=== PATIENT | male | born 1960 | race Two or more races ===

== ENCOUNTER 2018-02-12 12:15 | Inpatient (IN) | payer OTHER ==
--- NOTE | 2018-02-12 12:25 | PDOC ---
History of Present Illness - General Stated Complaint: Syncope/Near Syncope Time Seen by Provider: 02/12/18 12:25 History Source: Patient, Family Exam Limitations: Other - History of Present Illness Initial Comments: 02/12/18 12:46 57 year old male with PMH cerebral palsy, PUD, GIB, multiple blood transfusions , srinivasan ataxia, pneumonia complicated by sepsis/empyema, HTN presented to ED for low hemoglobin and near syncopal episode. Per pt's nephew, pt was sitting in his wheelchair and had a near syncopal episode for a few minutes, was arousable to voice, then returned to baseline. Pt's baseline per nephew is alert and oriented to person and place. Pt's baseline ambulation is via wheelchair. EMS was called after syncopal episode, and Dr. Oliverio Heredia (PCP) was called, ultimately pt returned to baseline and it was decided to not bring him to the hospital. Pt had recent blood work, which showed a hemoglobin of 8, and pt was sent to ED for transfusion. Pt admitted to generalized weakness, shortness of breath and lightheadedness today. Family member admitted to dark tarry stools x3 days. Pt denied chest pain, palpitations, abdominal pain, nausea , vomiting, diarrhea. Allergies: ASA PCP: Oliverio Heredia GI: Lizbeth Pulmonology: Carolyn Past History - Past Medical History Allergies/Adverse Reactions: Allergies Allergy/AdvReac Type Severity Reaction Status Date / Time aspirin Allergy Verified 02/12/18 12:32 Home Medications: Ambulatory Orders Krill/Om-3/Dha/Epa/Phospho/Ast [Krill Oil 1,000 mg Softgel] 1 each PO DAILY 03/02 Mv-Min/Vit C/Glut/Lysine/Hb124 [Immune Support Chewable Tablet] 1 each PO ASDIR 02/12/18 Omeprazole Magnesium [Acid Wearing Apparel Assembler] 40 mg PO ASDIR 02/12/18 Ubidecarenone [Co Q-10] 100 mg PO DAILY 02/12/18 COPD: No GI Disorders: Yes (bleeding, gastric ulcers) - Suicide/Smoking/Psychosocial Hx Smoking History: Never smoked Hx Alcohol Use: No Drug/Substance Use Hx: No Review of Systems - Review of Systems Able to Perform ROS?: Yes Comments:: 02/12/18 12:54 General: admitted to generalized weakness. denied fever, chills, night sweats. HEENT: denied sore throat, rhinorrhea, ear pain. Heart: admitted to near-syncope. denied chest pain, palpitations, syncope, lower extremity swelling, diaphoresis. Respiratory: admitted to shortness of breath. denied cough, sputum production, hemoptysis. Abdomen: admitted to dark/tarry stool. denied abdominal pain, nausea, vomiting, diarrhea, constipation. : denied dysuria, increased urinary frequency, hematuria, urinary incontinence , flank pain. Back: denied back pain. Musculoskeletal: denied joint pain, muscle pain, joint swelling. Neurological: denied headache, dizziness, numbness, tingling, weakness. Skin: denied rash, laceration, abrasion. *Physical Exam - Physical Exam Comments: 02/12/18 12:56 Constitutional: Well-nourished, Well-developed, appearing stated age. HEENT: head is normocephalic, atraumatic. EOMI. PERRLA. Eyes: pale conjuctiva Neck: supple. Full ROM. Heart: regular rhythm. no murmurs, rubs or gallops. Lungs: clear to auscultation bilaterally. no crackles, rhonchi or wheezing. no stridor. Abdomen: soft, nontender. normal bowel sounds. no rebound, guarding, masses. Sacral: erythema to sacral area, no ulcer. Rectal: hard stool in rectal vault. Extremities: Peripheral pulses intact. No lower extremity edema. Neurological: CN 2-12 grossly intact. Moves all four extremities. Psych: awake, alert, oriented x3. Follows commands. Answers questions appropriately. ED Treatment Course - LABORATORY CBC & Chemistry Diagram: 02/13/18 05:30 02/13/18 05:30 Medical Decision Making - Medical Decision Making 02/12/18 12:57 57 year old male with above PMH presented to ED fro near syncopal episode associated with dark tarry stools and hemoglobin of 8. Initial Vital Signs Temp Pulse Resp BP Pulse Ox 99.1 F 105 H 20 110/53 L 99 02/12/18 12:33 02/12/18 12:33 02/12/18 12:33 02/12/18 12:33 02/12/18 12:33 Afebrile, but borderline. Rectal temp = 99.9F. Mild tachycardia. Borderline tachypnea. Mild hypotension. No hypoxia on room air. Labs ordered: CBC, CMP, stool for occult blood, cardiac enzymes, magnesium Imaging ordered: CXR Medications ordered: none EKG performed at 1257: rate 99, regular rhythm, normal acxis, QTc 449, normal intervals, no acute ST changes. 02/12/18 13:24 CBC WBC 18.4 K/mm3 (4.0-10.0) H 02/12/18 12:40 RBC 4.14 M/mm3 (4.00-5.60) 02/12/18 12:40 Hgb 7.6 GM/dL (11.7-16.9) L 02/12/18 12:40 Hct 25.3 % (35.4-49) L D 02/12/18 12:40 MCV 61.0 fl (80-96) L 02/12/18 12:40 MCH 18.4 pg (25.7-33.7) L D 02/12/18 12:40 MCHC 30.1 g/dl (32.0-35.9) L 02/12/18 12:40 RDW 18.6 % (11.9-15.9) H 02/12/18 12:40 Plt Count 455 K/MM3 (134-434) H D 02/12/18 12:40 MPV 7.5 fl (7.5-11.1) 02/12/18 12:40 Absolute Neuts (auto) 13.6 K/mm3 (1.5-8.0) H 02/12/18 12:40 Neutrophils % 73.9 % (42.8-82.8) D 02/12/18 12:40 Lymphocytes % 14.4 % (8-40) D 02/12/18 12:40 Monocytes % 10.0 % (3.8-10.2) 02/12/18 12:40 Eosinophils % 1.0 % (0-4.5) 02/12/18 12:40 Basophils % 0.7 % (0-2.0) 02/12/18 12:40 Nucleated RBC % 0 % (0-0) 02/12/18 12:40 Leukocytosis with left shift. Thrombocytosis. Microcytic anemia. - Baseline hgb 9.5 Stool for occult blood positive. Additional labs ordered: lactate, VBG, blood cultures, UA/UC Additional medications ordered: packed RBC 02/12/18 13:31 CMP Sodium 139 mmol/L (136-145) 02/12/18 12:40 Potassium 3.6 mmol/L (3.5-5.1) 02/12/18 12:40 Chloride 106 mmol/L (98-107) 02/12/18 12:40 Carbon Dioxide 24 mmol/L (21-32) 02/12/18 12:40 Anion Gap 9 MMOL/L (8-16) 02/12/18 12:40 BUN 24 mg/dL (7-18) H 02/12/18 12:40 Creatinine 1.0 mg/dL (0.55-1.3) 02/12/18 12:40 Creat Clearance w eGFR > 60 (>60) 02/12/18 12:40 Random Glucose 114 mg/dL (74-106) H 02/12/18 12:40 Calcium 8.3 mg/dL (8.5-10.1) L 02/12/18 12:40 Magnesium 1.7 mg/dL (1.8-2.4) L 02/12/18 12:40 Total Bilirubin 0.3 mg/dL (0.2-1) 02/12/18 12:40 AST 9 U/L (15-37) L 02/12/18 12:40 ALT 16 U/L (13-61) 02/12/18 12:40 Alkaline Phosphatase 72 U/L (45-117) 02/12/18 12:40 Creatine Kinase 43 IU/L (26-308) 02/12/18 12:40 Troponin I < 0.02 ng/ml (0.00-0.05) 02/12/18 12:40 Total Protein 6.7 g/dl (6.4-8.2) 02/12/18 12:40 Albumin 3.5 g/dl (3.4-5.0) 02/12/18 12:40 Mildly elevated BUN. - Dehydration vs upper GIB No clinically significant electrolyte abnormalities. Normal cardiac enzymes. 02/12/18 14:30 Lactic = 1.5 VBG - mild respiratory alkalosis Blood cultures pending. Urine Test Results Urine Color Ltyellow 02/12/18 13:30 Urine Appearance Clear 02/12/18 13:30 Urine pH 5.0 (5.0-8.0) 02/12/18 13:30 Ur Specific [place] 1.024 (1.010-1.035) 02/12/18 13:30 Urine Protein Negative (NEGATIVE) 02/12/18 13:30 Urine Glucose (UA) Negative (NEGATIVE) 02/12/18 13:30 Urine Ketones Negative (NEGATIVE) 02/12/18 13:30 Urine Blood Negative (NEGATIVE) 02/12/18 13:30 Urine Nitrite Negative (NEGATIVE) 02/12/18 13:30 Urine Bilirubin Negative (<2.0 mg/dL) 02/12/18 13:30 Ur Leukocyte Esterase Negative (NEGATIVE) 02/12/18 13:30 No evidence of UTI. CXR report: prominent mediastinum, hiatal hernia, weak inspiration, no acute pathology. - My view: cardiomegaly. sharp costophrenic angles. no pneumothorax. prominent mediastinum noted on prior CXR 01/06/2016. Pt to be admitted for symptomatic anemia requiring blood transfusion, possibly secondary to acute GIB. Pt meets criteria for SIRS based on leukocytosis and HR>90. Low grade fever with no source of infection. - UA negative - CXR no infiltrate - Blood cultures pending 02/12/18 16:[address] Logan about the case, who will assume care for the patient when he is admitted. Dr. Logan requested CT head. Pending CT head. 02/14/18 05:38 CT head report: no acute intracranial pathology. *DC/Admit/Observation/Transfer Diagnosis at time of Disposition: Microcytic anemia, Syncope, Leukocytosis, GIB (gastrointestinal bleeding), SIRS (systemic inflammatory response syndrome), Thrombocytosis, Cerebral palsy - Discharge Dispostion Condition at time of disposition: Stable Decision to Admit order: Yes - Referrals - Patient Instructions - Post Discharge Activity
--- NOTE | 2018-02-12 12:29 | PDOC ---
Attending Attestation - Resident Resident Name: Natasha Thakur - HPI HPI: 02/12/18 15:30 Pt presents to the ED complaining of syncope, light headness and shortness of breath. Family is reporting that he has had multiple black stools. Had syncope on Sunday, but improved on the arrival of EMS and was not taken to the hospital. Presents today because he continues to feel lightheaded and short of breath and because Hgb drawn on Sunday was 8. Sent in by PMD Oliverio Garcia for transfusion. 02/12/18 15:42 02/12/18 15:43 - Physicial Exam PE: 02/12/18 15:47 Agree with resident exam. Patient has cerebral palsy but is alert and oriented. Lungs are clear. Heart has regular rate and rhythm. Abdomen soft, non tender and non distended. Skin is pale but without rashes. - Medical Decision Making 02/12/18 15:50 Pt presents to the ED complaining of presyncope and shortness of breath. Sent in for transfusion by PMD secondary to Hbg of 8. Labs show a WBC count of 18, but patient is afebrile. Lactate and UA show no evidence of infection. Will hold on antibiotics for now. Will admit to medicine for syncopal work up. Will transfuse one unit of PRBC.
[2018-02-12 12:35] VITALS: BMI 25.7
[2018-02-12 13:03] LABS: BASO % 0.7 % (0-2.0); HEMATOCRIT 25.3 % (35.4-49); HEMOGLOBIN 7.6 GM/dL (11.7-16.9); LYMPH % 14.4 % (8-40); MCHC 30.1 g/dl (32.0-35.9); MEAN PLT VOLUME 7.5 fl (7.5-11.1); NEUT % 73.9 % (42.8-82.8); PLATELET COUNT 455 K/MM3 (134-434); RBC 4.14 M/mm3 (4.00-5.60); RDW 18.6 % (11.9-15.9); WHITE BLOOD COUNT 18.4 K/mm3 (4.0-10.0)
[2018-02-12 13:05] LABS: MCH 18.4 pg (25.7-33.7)
[2018-02-12 13:21] LABS: ALBUMIN 3.5 g/dl (3.4-5.0); ALK PHOS 72 U/L (45-117); ANION GAP 9 MMOL/L (8-16); BILIRUBIN,TOTAL 0.3 mg/dL (0.2-1); BLOOD UREA NITROGEN 24 mg/dL (7-18); CALCIUM 8.3 mg/dL (8.5-10.1); CHLORIDE 106 mmol/L (98-107); CO2 24 mmol/L (21-32); GLUCOSE,RANDOM 114 mg/dL (74-106); MAGNESIUM 1.7 mg/dL (1.8-2.4); POTASSIUM 3.6 mmol/L (3.5-5.1); SGOT/AST 9 U/L (15-37); SGPT/ALT 16 U/L (13-61); SODIUM 139 mmol/L (136-145); TOT PROT 6.7 g/dl (6.4-8.2)
[2018-02-12 13:26] LABS: INR 1.11 (0.83-1.09); PROTHROMBIN TIME (PATIENT) 13.1 SEC (9.7-13.0)
[2018-02-12 13:29] LABS: ACTIVATED PTT 29.7 SECONDS (25.2-36.5)
[2018-02-12 13:42] LABS: URINE APPEARANCE CLEAR; URINE BILIRUBIN NEGATIVE (<2.0 mg/dL); URINE COLOR LTYELLOW; URINE GLUCOSE (UA) NEGATIVE (NEGATIVE); URINE KETONE NEGATIVE (NEGATIVE); URINE LEUK ESTERASE NEGATIVE (NEGATIVE); URINE NITRITE NEGATIVE (NEGATIVE); URINE PROTEIN NEGATIVE (NEGATIVE)
[2018-02-12 13:53] LABS: VENOUS PC02 36.9 mmHg (38-52); VENOUS PH 7.43 (7.32-7.42); VENOUS PO2 74.5 mmHg (28-48)
[2018-02-12 15:00] LABS: ANISOCYTOSIS 1+; MACROCYTOSIS 0; OVALOCYTE 1+; PLATELET ESTIMATE NORMAL; TARGET CELLS 1+
[2018-02-13 06:40] LABS: BASO % 1.1 % (0-2.0); HEMATOCRIT 27.5 % (35.4-49); HEMOGLOBIN 8.6 GM/dL (11.7-16.9); LYMPH % 35.2 % (8-40); MCHC 31.1 g/dl (32.0-35.9); MEAN CELL VOLUME 63.8 fl (80-96); MONO % 12.1 % (3.8-10.2); NEUT % 48.6 % (42.8-82.8); PLATELET COUNT 412 K/MM3 (134-434); RBC 4.31 M/mm3 (4.00-5.60); RDW 21.5 % (11.9-15.9)
[2018-02-13 07:15] LABS: MCH 19.9 pg (25.7-33.7)
[2018-02-13 07:21] LABS: ALBUMIN 3.1 g/dl (3.4-5.0); ALK PHOS 64 U/L (45-117); ANION GAP 7 MMOL/L (8-16); BILIRUBIN,TOTAL 0.5 mg/dL (0.2-1); BLOOD UREA NITROGEN 16 mg/dL (7-18); CALCIUM 8.2 mg/dL (8.5-10.1); CHLORIDE 109 mmol/L (98-107); CO2 22 mmol/L (21-32); CREATININE 0.8 mg/dL (0.55-1.3); GLUCOSE,RANDOM 85 mg/dL (74-106); POTASSIUM 3.9 mmol/L (3.5-5.1); SGOT/AST 10 U/L (15-37); SGPT/ALT 16 U/L (13-61); SODIUM 139 mmol/L (136-145); TOT PROT 6.2 g/dl (6.4-8.2)
[2018-02-13] MEDS: PANTOPRAZOLE SODIUM 40 MG VIAL IVPUSH SCH (09:51)
--- NOTE | 2018-02-13 10:28 | ECHO ---
Version: 1 Name: HEAVEN LEYVA Exam: Adult Echocardiogram Study Date: 02/13/2018, 9:08 AM Age: 57 Years MMode/2D Measurements & Calculations IVSd: 0.78 cm LVIDs: 3.0 cm LVIDd: 4.5 cm LVPWd: 0.88 cm ACS: 1.78 cm Ao root diam: 4.2 cm LA dimension: 3.7 cm Doppler Measurements & Calculations MV E max arturo: 70.6 cm/sec Med E/e': 9.4 MV A max arturo: 80.9 cm/sec Med Peak E' Arturo: 7.5 cm/sec MV E/A: 0.87 Lat E/e': 6.6 Lat Peak E' Arturo: 10.6 cm/sec Ao max P.35 mmHg Ao mean P.41 mmHg Ao V2 max: 76.7 cm/sec Procedure A two-dimensional transthoracic echocardiogram with color flow and Doppler was performed. Left Ventricle The left ventricular size, thickness and function are normal. The left ventricular ejection fraction is normal. E/A reversal consistent with but not diagnostic of poor LV compliance. The left ventricular wall motion is normal. Right Ventricle The right ventricle is normal in size and function. Atria Normal left and right atrial size and function. Mitral Valve The mitral valve is normal in structure and function. There is no mitral valve stenosis. There is mi ld mitral regurgitation. Tricuspid Valve The tricuspid valve is not well visualized. There is no tricuspid stenosis. There was insufficient T R detected to calculate RV systolic pressure. Aortic Valve The aortic valve is not well visualized. No hemodynamically significant valvular aortic stenosis. No aortic regurgitation is present. Pulmonic Valve The pulmonic valve is not well visualized. Great Vessels Mild aortic root dilatation. Pericardium/Pleura There is no pericardial effusion. Summary Statements The left ventricular size, thickness and function are normal The left ventricular ejection fraction is normal. The left ventricular wall motion is normal. Mild aortic root dilatation. Normal left and right atrial size and function. There is mild mitral regurgitation. E/A reversal consistent with but not diagnostic of poor LV compliance There was insufficient TR detected to calculate RV systolic pressure. MD Ravi Cotton 02/13/2018, 10:27 AM Ordering Physician: Celeste Logan Performed By: Arely Cottrell
--- NOTE | 2018-02-13 10:31 | CON.GI ---
Consult Consult Specialty:: Gatroenterology Referred by:: Dr. Celeste Logan Reason for Consultation:: GI Bleed - History of Present Illness Chief Complaint: Stool OB (+), anemia History of Present Illness: Patient is a 57 year old male with past medical history of PUD, Cerebral Palsy, GIB, multiple blood transfusions, Queenie ataxia, pneumonia complicated by sepsis/empyema, HTN. Patient was evaluated by PMD after syncopal episode and labs shown Hg 8.0, patient also admits having black colored stool 3 days ago. Patient was instructed to come to ED for blood transfusion. Patient is s/p 1U PRBC transfused on 02/12/18 for Hg 7.6 and stool OB (+). Complain of constipation for 3 days. 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) Gastrointestinal: Yes: GI Bleed, Peptic Ulcer Disease - Alcohol/Substance Use Hx Alcohol Use: No - Smoking History Smoking history: Never smoked - Social History ADL: Family Assistance History of Recent Travel: No Home Medications - Allergies Allergies/Adverse Reactions: Allergies Allergy/AdvReac Type Severity Reaction Status Date / Time aspirin Allergy Verified 02/12/18 12:32 - Home Medications Home Medications: Ambulatory Orders Krill/Om-3/Dha/Epa/Phospho/Ast [Krill Oil 1,000 mg Softgel] 1 each PO DAILY 03/02 Mv-Min/Vit C/Glut/Lysine/Hb124 [Immune Support Chewable Tablet] 1 each PO ASDIR 02/12/18 Omeprazole Magnesium [Acid High Density Press Operator] 40 mg PO ASDIR 02/12/18 Ubidecarenone [Co Q-10] 100 mg PO DAILY 02/12/18 Review of Systems - Review of Systems Constitutional: reports: No Symptoms Eyes: reports: No Symptoms HENT: reports: No Symptoms Neck: reports: No Symptoms Cardiovascular: reports: No Symptoms Respiratory: reports: No Symptoms Gastrointestinal: reports: Constipation, Other (denies melena) Genitourinary: reports: No Symptoms Breasts: reports: No Symptoms Reported Musculoskeletal: reports: No Symptoms Integumentary: reports: No Symptoms Neurological: reports: No Symptoms Endocrine: reports: No Symptoms Hematology/Lymphatic: reports: No Symptoms Psychiatric: reports: No Symptoms Physical Exam-GI Vital Signs: Vital Signs Temperature 97.8 F 02/13/18 06:00 Pulse Rate 78 02/13/18 06:00 Respiratory Rate 18 02/13/18 06:00 Blood Pressure 127/74 02/13/18 06:00 O2 Sat by Pulse Oximetry (%) 96 02/12/18 21:00 Constitutional: Yes: Well Nourished, No Distress, Calm Eyes: Yes: Conjunctiva Clear Cardiovascular: Yes: WNL, Regular Rate and Rhythm Respiratory: Yes: WNL, Regular, CTA Bilaterally Gastrointestinal Inspection: Yes: WNL ...Auscultate: Yes: Hypoactive Bowel Sounds ...Palpate: Yes: Soft ...Percussion: Yes: Dullness Musculoskeletal: Yes: Muscle Weakness Neurological: Yes: Alert, Oriented Psychiatric: Yes: Alert, Oriented Labs: CBC, BMP 02/13/18 05:30 02/13/18 05:30 INR, PTT INR 1.11 (0.83-1.09) H 02/12/18 12:40 Problem List - Problems (1) GIB (gastrointestinal bleeding) Code(s): K92.2 - GASTROINTESTINAL HEMORRHAGE, UNSPECIFIED (2) Anemia Code(s): D64.9 - ANEMIA, UNSPECIFIED
--- NOTE | 2018-02-13 10:38 | HP ---
Admitting History and Physical - Admission History of Present Illness: Pt is a 57 y/o male with PMH significant for cerebral palsy, PUD, GIB, multiple blood transfusions, srinivasan ataxia, pneumonia complicated by sepsis/empyema. Pt presented to ED for near syncopal episode. Per pt's nephew, pt was sitting in his wheelchair and had a near syncopal episode for a few minutes, was arousable to voice, then returned to baseline. Pt's baseline ambulation is via wheelchair. EMS was called after syncopal episode and his PMD(Dr Oliverio Heredia) decided not to bring pt to hospital. However pt remained weak, lightheaded and this was associated w/ SOB. In the ER pt's mother stated that he has had melanotic stool for the past 3 days and his HgB was 7.6. Pt was than given blood transfusion. 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 (cerebral palsy Cabrera's ataxia.) Gastrointestinal: Yes: GI Bleed, Peptic Ulcer Disease Heme/Onc: Yes: Anemia - Past Surgical History Past Surgical History: Yes: None - Smoking History Smoking history: Never smoked - Alcohol/Substance Use Hx Alcohol Use: No - Social History ADL: Family Assistance History of Recent Travel: No Home Medications - Allergies Allergies/Adverse Reactions: Allergies Allergy/AdvReac Type Severity Reaction Status Date / Time aspirin Allergy Verified 02/12/18 12:32 - Home Medications Home Medications: Ambulatory Orders Krill/Om-3/Dha/Epa/Phospho/Ast [Krill Oil 1,000 mg Softgel] 1 each PO DAILY 03/02 Mv-Min/Vit C/Glut/Lysine/Hb124 [Immune Support Chewable Tablet] 1 each PO ASDIR 02/12/18 Omeprazole Magnesium [Acid Shampooer] 40 mg PO ASDIR 02/12/18 Ubidecarenone [Co Q-10] 100 mg PO DAILY 02/12/18 Family Disease History - Family Disease History Family History: Unremarkable Review of Systems Unable to obtain ROS, reason: Cerebral palsy Physical Examination Vital Signs: Vital Signs Temperature 97.8 F 02/13/18 06:00 Pulse Rate 78 02/13/18 06:00 Respiratory Rate 18 02/13/18 06:00 Blood Pressure 127/74 02/13/18 06:00 O2 Sat by Pulse Oximetry (%) 96 02/12/18 21:00 Constitutional: Yes: Pallor HENT: Yes: WNL Neck: Yes: WNL, Supple Cardiovascular: Yes: WNL, Regular Rate and Rhythm Respiratory: Yes: WNL, Regular, CTA Bilaterally Gastrointestinal: Yes: WNL, Normal Bowel Sounds, Soft Musculoskeletal: Yes: WNL Extremities: Yes: WNL Edema: No Labs: CBC, BMP 02/13/18 05:30 02/13/18 05:30 Problem List - Problems (1) Syncope Assessment/Plan: Monitor on tele Serial cpk/troponin ?Due to anemia/GI bleed Cardio consult Carotid doppler/echo Code(s): R55 - SYNCOPE AND COLLAPSE (2) Symptomatic anemia Assessment/Plan: ?DUE to GI bleed Monitor H/H Pt transfused 1 unit PRBC's Code(s): D64.9 - ANEMIA, UNSPECIFIED (3) GIB (gastrointestinal bleeding) Assessment/Plan: Monitor H/H IV protonix GI consult Code(s): K92.2 - GASTROINTESTINAL HEMORRHAGE, UNSPECIFIED (4) ARF (acute renal failure) Assessment/Plan: ?Due to dehydration Cont IVF Code(s): N17.9 - ACUTE KIDNEY FAILURE, UNSPECIFIED (5) Leukocytosis Assessment/Plan: ?Due to dehydration Cont IVF and repeat WBC ID consult Code(s): D72.829 - ELEVATED WHITE BLOOD CELL COUNT, UNSPECIFIED
--- NOTE | 2018-02-13 10:39 | CON.CARD ---
Consult Consult Specialty:: cardiology Reason for Consultation:: ?syncope - History of Present Illness Chief Complaint: Pt is alert; denies chest pain, dyspnea, palpitations, dizziness. History of Present Illness: 57 year old white male with PMH Lashawn's ataxia, cerebral palsy, PUD, GIB, multiple blood transfusions, pneumonia complicated by sepsis/empyema, HTN presented to ED for low hemoglobin and near syncopal episode. Per pt's nephew, pt was sitting in his wheelchair and had a near syncopal episode for a few minutes, was arousable to voice, then returned to baseline. Pt's baseline per nephew is alert and oriented to person and place. Pt's baseline ambulation is via wheelchair. EMS was called after syncopal episode, and Dr. Oliverio Heredia (PCP ) was called, ultimately pt returned to baseline and it was decided to ? not bring him to the hospital. Pt had recent blood work, which showed a hemoglobin of 8, and pt was sent to ED for transfusion. Pt admitted to generalized weakness , shortness of breath and lightheadedness today. Family member admitted to dark tarry stools x3 days. Pt denied chest pain, palpitations, abdominal pain, nausea , vomiting, diarrhea. 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) Gastrointestinal: Yes: GI Bleed, Peptic Ulcer Disease - Alcohol/Substance Use Hx Alcohol Use: No - Smoking History Smoking history: Never smoked - Social History ADL: Family Assistance History of Recent Travel: No Home Medications - Allergies Allergies/Adverse Reactions: Allergies Allergy/AdvReac Type Severity Reaction Status Date / Time aspirin Allergy Verified 02/12/18 12:32 - Home Medications Home Medications: Ambulatory Orders Krill/Om-3/Dha/Epa/Phospho/Ast [Krill Oil 1,000 mg Softgel] 1 each PO DAILY 03/02 Mv-Min/Vit C/Glut/Lysine/Hb124 [Immune Support Chewable Tablet] 1 each PO ASDIR 02/12/18 Omeprazole Magnesium [Acid Dock Loader] 40 mg PO ASDIR 02/12/18 Ubidecarenone [Co Q-10] 100 mg PO DAILY 02/12/18 Review of Systems - Review of Systems Constitutional: reports: Weakness Eyes: reports: No Symptoms HENT: reports: No Symptoms Neck: reports: Decreased ROM Cardiovascular: reports: No Symptoms Respiratory: reports: No Symptoms Gastrointestinal: reports: No Symptoms Genitourinary: reports: No Symptoms Breasts: reports: No Symptoms Reported Musculoskeletal: reports: Decreased ROM, Muscle Weakness Integumentary: reports: No Symptoms Neurological: reports: Weakness Endocrine: reports: No Symptoms Hematology/Lymphatic: reports: Other Psychiatric: reports: No Symptoms, Altered Sleep Pattern (r/o) - Risk Factors Known Risk Factors: Yes: Age, Gender, Physical Inactivity, Other (Lashawn ataxia) Vital Signs: Vital Signs Temperature 97.8 F 02/13/18 06:00 Pulse Rate 78 02/13/18 06:00 Respiratory Rate 18 02/13/18 06:00 Blood Pressure 127/74 02/13/18 06:00 O2 Sat by Pulse Oximetry (%) 96 02/12/18 21:00 Constitutional: Yes: Calm Eyes: Yes: WNL HENT: Yes: WNL Neck: Yes: Decreased ROM Respiratory: Yes: WNL Gastrointestinal: Yes: Soft Renal/: No: Anuria Heart Sounds: Yes: S1, S2 Murmur: Yes: Systolic Murmur, Grade 1 Musculoskeletal: Yes: Joint Stiffness, Muscle Weakness Extremities: Yes: Cool Edema: No Peripheral Pulses WNL: Yes Integumentary: Yes: WNL Neurological: Yes: Alert, Oriented, Unsteady Gait, Weakness Psychiatric: Yes: WNL - Other Data Labs, Other Data: CBC, BMP 02/13/18 05:30 02/13/18 05:30 INR, PTT INR 1.11 (0.83-1.09) H 02/12/18 12:40 Troponin, BNP 02/12/18 02/13/18 12:40 00:45 Troponin I < 0.02 < 0.02 Troponin, BNP 02/12/18 02/13/18 12:40 00:45 Troponin I < 0.02 < 0.02 Abnormal Lab Results 02/12/18 02/13/18 02/14/18 12:50 05:30 05:30 Hgb 9.8 L Hct 30.9 L MCV 66.8 L MCH 21.2 L MCHC 31.7 L RDW 26.4 H Monocytes % 14.0 H Chloride 109 H Anion Gap 7 L Calcium 8.2 L AST 10 L Total Protein 6.2 L Albumin 3.1 L Crossmatch See Detail 02/14/18 06:00 Hgb Hct MCV MCH MCHC RDW Monocytes % Chloride 110 H Anion Gap Calcium AST 10 L Total Protein 6.3 L Albumin 3.2 L Crossmatch Echo: Report Reviewed Ejection Fraction %: LVEF > or = 40 % Imaging - Results Chest X-ray: Image Reviewed EKG: Image Reviewed Problem List - Problems (1) Friedreich ataxia Assessment/Plan: ECHO does not indicate HCM or cardiomyopathy, which are often associated with this condition. F?u with neurology. Code(s): G11.1 - EARLY-ONSET CEREBELLAR ATAXIA (2) Aortic root dilatation Assessment/Plan: ECHO: normal LVEF; mild aortic dilatation; abnormal diastolic compliance; mild MR. F/u records regarding aortic root size. Code(s): I77.810 - THORACIC AORTIC ECTASIA (3) Diastolic CHF Code(s): I50.30 - UNSPECIFIED DIASTOLIC (CONGESTIVE) HEART FAILURE (4) Cerebral palsy Code(s): G80.9 - CEREBRAL PALSY, UNSPECIFIED (5) GIB (gastrointestinal bleeding) Assessment/Plan: workup for acute anemia in progress. Replete RBCs, fluids; pt's syncopal episode may have been related to anemia, dehydration. Code(s): K92.2 - GASTROINTESTINAL HEMORRHAGE, UNSPECIFIED (6) Leukocytosis Assessment/Plan: WBC 18.4; f/u with ID. Code(s): D72.829 - ELEVATED WHITE BLOOD CELL COUNT, UNSPECIFIED (7) Syncope Assessment/Plan: Replete RBCs, fluids (BUN , at 24, is the highest noted in hospital [id number] kept since 12/2015). Orthostatic vital signs. TSH WNL. TNI < 0.02 x 2. EKG: normal study. ECHO: normal LVEF; mild aortic root dilatation; abnormal diastolic compliance; mild MR. CT head: no acute pathology; probable chronic minimal microvascular ischemic disease. Leukocytosis; r/o infectious process. F/u prior studies done to r/o CAD. F/u with neurology: Lashawn's ataxia, with muscle-wasting, autonomic dysfunction, weakness. Code(s): R55 - SYNCOPE AND COLLAPSE (8) HTN (hypertension) Code(s): I10 - ESSENTIAL (PRIMARY) HYPERTENSION (9) Sleep disorder Assessment/Plan: consider sleep studies to r/o disorder associated with Lashawn's Code(s): G47.9 - SLEEP DISORDER, UNSPECIFIED (10) Hiatal hernia Code(s): K44.9 - DIAPHRAGMATIC HERNIA WITHOUT OBSTRUCTION OR GANGRENE
[2018-02-13 11:40] LABS: CHOLESTEROL 139 mg/dL (50-200); HDL CHOLESTEROL 42 mg/dL (40-60); TRIGLYCERIDES 144 mg/dL (0-150)
--- NOTE | 2018-02-13 14:24 | CON.ID ---
Consult Consult Specialty:: infectious diseases Referred by:: Reason for Consultation:: leukocytosis,r/o uti - History of Present Illness Chief Complaint: weakness History of Present Illness: 57 y/o male with PMH significant for cerebral palsy, PUD, GIB, multiple blood transfusions, srinivasan ataxia, pneumonia complicated by sepsis/empyema. Pt presented to ED for near syncopal episode. Per pt's nephew, pt was sitting in his wheelchair and had a near syncopal episode for a few minutes, was arousable to voice, then returned to baseline. Pt's baseline ambulation is via wheelchair. EMS was called after syncopal episode and his PMD(Dr Oliverio Heredia) decided not to bring pt to hospital. However pt remained weak, lightheaded and this was associated w/ SOB. In the ER pt's mother stated that he has had melanotic stool for the past 3 days and his HgB was 7.6. Pt was than given blood transfusion. 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 (cerebral palsy) Gastrointestinal: Yes: GI Bleed, Peptic Ulcer Disease - Alcohol/Substance Use Hx Alcohol Use: No - Smoking History Smoking history: Never smoked - Social History ADL: Family Assistance History of Recent Travel: No Home Medications - Allergies Allergies/Adverse Reactions: Allergies Allergy/AdvReac Type Severity Reaction Status Date / Time aspirin Allergy Verified 02/12/18 12:32 - Home Medications Home Medications: Ambulatory Orders Krill/Om-3/Dha/Epa/Phospho/Ast [Krill Oil 1,000 mg Softgel] 1 each PO DAILY 03/02 Mv-Min/Vit C/Glut/Lysine/Hb124 [Immune Support Chewable Tablet] 1 each PO ASDIR 02/12/18 Omeprazole Magnesium [Acid Insurance Claims Supervisor] 40 mg PO ASDIR 02/12/18 Ubidecarenone [Co Q-10] 100 mg PO DAILY 02/12/18 Review of Systems Unable to obtain ROS, reason: unable to obtain Physical Exam Vital Signs: Vital Signs Temperature 98.1 F 02/13/18 13:53 Pulse Rate 78 02/13/18 14:08 Respiratory Rate 16 02/13/18 14:08 Blood Pressure 109/72 02/13/18 14:08 O2 Sat by Pulse Oximetry (%) 99 02/13/18 14:08 Constitutional: Yes: No Distress, Calm, Other (bed bound) Eyes: Yes: Conjunctiva Clear HENT: Yes: Atraumatic Cardiovascular: Yes: Regular Rate and Rhythm Respiratory: Yes: Regular, CTA Bilaterally Gastrointestinal: Yes: Normal Bowel Sounds, Soft Extremities: Yes: Other Neurological: Yes: Alert Psychiatric: Yes: Alert Labs: CBC, BMP 02/13/18 05:30 02/13/18 05:30 Imaging - Results Chest X-ray: Report Reviewed, Image Reviewed Cat Scan: Report Reviewed, Image Reviewed Assessment/Plan Problem List - Problems (1) Syncope Code(s): R55 - SYNCOPE AND COLLAPSE (2) Symptomatic anemia Code(s): D64.9 - ANEMIA, UNSPECIFIED (3) GIB (gastrointestinal bleeding) Code(s): K92.2 - GASTROINTESTINAL HEMORRHAGE, UNSPECIFIED (4) ARF (acute renal failure) Code(s): N17.9 - ACUTE KIDNEY FAILURE, UNSPECIFIED (5) Leukocytosis Code(s): D72.829 - ELEVATED WHITE BLOOD CELL COUNT, UNSPECIFIED plan i am going to hold off on starting abx await for all cx reports patient looks stable once we have everything then will decide further mgmt
[2018-02-13] MEDS ORDERED: MAGNESIUM CITRATE 300 ML BOTTLE PO ONE (18:22)
--- NOTE | 2018-02-13 19:00 | EKG ---
Test Reason : Blood Pressure : / mmHG Vent. Rate : 099 BPM Atrial Rate : 099 BPM P-R Int : 160 ms QRS Dur : 084 ms QT Int : 350 ms P-R-T Axes : 026 009 010 degrees QTc Int : 449 ms NORMAL SINUS RHYTHM NORMAL ECG WHEN COMPARED WITH ECG OF 21-DEC-2015 00:42, NO SIGNIFICANT CHANGE WAS FOUND Confirmed by SANDOVAL SOSA MD ([id number]) on 02/13/2018 6:59:54 PM Referred By: Confirmed By:SANDOVAL SOSA MD
[2018-02-14] MEDS ORDERED: PEG3350/SOD SULF,BICARB,CL/KCL 4,000 ML SOLN.RECON PO ONE (06:00)
[2018-02-14 06:59] LABS: BASO % 1.1 % (0-2.0); EOS % 2.2 % (0-4.5); HEMATOCRIT 30.9 % (35.4-49); HEMOGLOBIN 9.8 GM/dL (11.7-16.9); MCH 21.2 pg (25.7-33.7); MCHC 31.7 g/dl (32.0-35.9); MEAN CELL VOLUME 66.8 fl (80-96); MEAN PLT VOLUME 7.8 fl (7.5-11.1); NEUT % 51.7 % (42.8-82.8); PLATELET COUNT 408 K/MM3 (134-434); RBC 4.63 M/mm3 (4.00-5.60); RDW 26.4 % (11.9-15.9); WHITE BLOOD COUNT 8.8 K/mm3 (4.0-10.0)
[2018-02-14 07:19] LABS: ALBUMIN 3.2 g/dl (3.4-5.0); ALK PHOS 62 U/L (45-117); ANION GAP 8 MMOL/L (8-16); BILIRUBIN,TOTAL 0.6 mg/dL (0.2-1); BLOOD UREA NITROGEN 13 mg/dL (7-18); CALCIUM 8.5 mg/dL (8.5-10.1); CHLORIDE 110 mmol/L (98-107); CO2 23 mmol/L (21-32); CREATININE 0.9 mg/dL (0.55-1.3); GLUCOSE,RANDOM 95 mg/dL (74-106); POTASSIUM 4.1 mmol/L (3.5-5.1); SGOT/AST 10 U/L (15-37); SGPT/ALT 14 U/L (13-61); SODIUM 140 mmol/L (136-145); TOT PROT 6.3 g/dl (6.4-8.2)
[2018-02-14] MEDS: PANTOPRAZOLE SODIUM 40 MG VIAL IVPUSH SCH (10:05)
--- NOTE | 2018-02-14 11:09 | PN ---
Progress Note, Physician Chief Complaint: Cardiology Coverage for Dr. Duarte History of Present Illness: No further near or true syncopal episodes, Hgb with appropriate increase post transfusion. Plan for colonoscopy tomorrow for eval of anemia with + FOBT. - Current Medication List Current Medications: Active Medications Dextrose/Sodium Chloride (D5-1/2ns -) 1,000 mls @ 75 mls/hr IV ASDIR [facility] Pantoprazole Sodium (Protonix Iv) 40 mg IVPUSH DAILY [facility] Last Admin: 02/14/18 10:05 Dose: 40 mg Sodium Phosphate (Fleet Adult Rectal Enema -) 133 ml MD ONCE ONE Stop: 02/15/18 06:01 - Objective Vital Signs: Vital Signs Temperature 98.0 F 02/14/18 10:00 Pulse Rate 84 02/14/18 10:00 Respiratory Rate 18 02/14/18 10:00 Blood Pressure 137/86 02/14/18 10:00 O2 Sat by Pulse Oximetry (%) 96 02/13/18 21:00 Constitutional: Yes: No Distress, Calm Neck: Yes: Supple Cardiovascular: Yes: Regular Rate and Rhythm Respiratory: Yes: Regular, CTA Bilaterally Gastrointestinal: Yes: Soft, Hypoactive Bowel Sounds Edema: No Labs: CBC, BMP 02/14/18 05:30 02/14/18 06:00 INR, PTT INR 1.11 (0.83-1.09) H 02/12/18 12:40 - ....Imaging EKG: Report Reviewed (Tele: SR no pauses) Problem List - Problems (1) Cerebral palsy Code(s): G80.9 - CEREBRAL PALSY, UNSPECIFIED Qualifiers: Cerebral palsy type: unspecified type Qualified Code(s): G80.9 - Cerebral palsy, unspecified (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 (3) GIB (gastrointestinal bleeding) Code(s): K92.2 - GASTROINTESTINAL HEMORRHAGE, UNSPECIFIED Qualifiers: GI bleed type/associated pathology: unspecified gastrointestinal hemorrhage type Qualified Code(s): K92.2 - Gastrointestinal hemorrhage, unspecified (4) Leukocytosis Code(s): D72.829 - ELEVATED WHITE BLOOD CELL COUNT, UNSPECIFIED (5) Sleep disorder Code(s): G47.9 - SLEEP DISORDER, UNSPECIFIED (6) Anemia Code(s): D64.9 - ANEMIA, UNSPECIFIED Qualifiers: Iron deficiency anemia type: chronic blood loss Assessment/Plan 02/13/18 Echo: Normal LV size and fxn, mild MR - Problems (1) Friedreich ataxia Assessment/Plan: ECHO does not indicate HCM or cardiomyopathy, which are often associated with this condition. F?u with neurology. Code(s): G11.1 - EARLY-ONSET CEREBELLAR ATAXIA (2) Aortic root dilatation Assessment/Plan: ECHO: normal LVEF; mild aortic dilatation; abnormal diastolic compliance; mild MR. F/u records regarding aortic root size. Code(s): I77.810 - THORACIC AORTIC ECTASIA (3) Diastolic CHF Code(s): I50.30 - UNSPECIFIED DIASTOLIC (CONGESTIVE) HEART FAILURE (4) Cerebral palsy Code(s): G80.9 - CEREBRAL PALSY, UNSPECIFIED (5) GIB (gastrointestinal bleeding) Assessment/Plan: workup for acute anemia in progress, plan for colonoscopy tomorrow, may proceed from CV-standpoint Replete RBCs, fluids; pt's syncopal episode may have been related to anemia, dehydration. Code(s): K92.2 - GASTROINTESTINAL HEMORRHAGE, UNSPECIFIED (6) Leukocytosis Assessment/Plan: WBC 18.4; f/u with ID. Code(s): D72.829 - ELEVATED WHITE BLOOD CELL COUNT, UNSPECIFIED (7) Syncope Assessment/Plan: Replete RBCs, fluids (BUN , at 24, is the highest noted in hospital [id number] kept since 12/2015). Orthostatic vital signs. TSH WNL. TNI < 0.02 x 2. EKG: normal study. ECHO: normal LVEF; mild aortic root dilatation; abnormal diastolic compliance; mild MR. CT head: no acute pathology; probable chronic minimal microvascular ischemic disease. Leukocytosis; r/o infectious process. F/u prior studies done to r/o CAD. F/u with neurology: Lashawn's ataxia, with muscle-wasting, autonomic dysfunction, weakness. Code(s): R55 - SYNCOPE AND COLLAPSE (8) HTN (hypertension) Code(s): I10 - ESSENTIAL (PRIMARY) HYPERTENSION (9) Sleep disorder Assessment/Plan: consider sleep studies to r/o disorder associated with Lashawn's Code(s): G47.9 - SLEEP DISORDER, UNSPECIFIED (10) Hiatal hernia Code(s): K44.9 - DIAPHRAGMATIC HERNIA WITHOUT OBSTRUCTION OR GANGRENE
--- NOTE | 2018-02-14 15:31 | PN ---
Progress Note, Physician History of Present Illness: patient stable family in the room urine cx noted count too low - Current Medication List Current Medications: Active Medications Dextrose/Sodium Chloride (D5-1/2ns -) 1,000 mls @ 75 mls/hr IV ASDIR [facility] Pantoprazole Sodium (Protonix Iv) 40 mg IVPUSH DAILY [facility] Last Admin: 02/14/18 10:05 Dose: 40 mg Sodium Phosphate (Fleet Adult Rectal Enema -) 133 ml CO ONCE ONE Stop: 02/15/18 06:01 - Objective Vital Signs: Vital Signs Temperature 98.0 F 02/14/18 10:00 Pulse Rate 84 02/14/18 10:00 Respiratory Rate 18 02/14/18 10:00 Blood Pressure 137/86 02/14/18 10:00 O2 Sat by Pulse Oximetry (%) 96 02/13/18 21:00 Constitutional: Yes: No Distress, Calm Eyes: Yes: Conjunctiva Clear Cardiovascular: Yes: S1, S2 Respiratory: Yes: Regular, CTA Bilaterally Gastrointestinal: Yes: Normal Bowel Sounds, Soft Musculoskeletal: Yes: WNL Extremities: Yes: WNL Neurological: Yes: Alert, Oriented Psychiatric: Yes: Alert, Oriented Labs: CBC, BMP 02/14/18 05:30 02/14/18 06:00 INR, PTT INR 1.11 (0.83-1.09) H 02/12/18 12:40 Assessment/Plan Problem List - Problems (1) Syncope Code(s): R55 - SYNCOPE AND COLLAPSE (2) Symptomatic anemia Code(s): D64.9 - ANEMIA, UNSPECIFIED (3) GIB (gastrointestinal bleeding) Code(s): K92.2 - GASTROINTESTINAL HEMORRHAGE, UNSPECIFIED (4) ARF (acute renal failure) Code(s): N17.9 - ACUTE KIDNEY FAILURE, UNSPECIFIED (5) Leukocytosis Code(s): D72.829 - ELEVATED WHITE BLOOD CELL COUNT, UNSPECIFIED 6 uti plan counts too low on uti will hold off on abx for now if patient does go for invasive procedure will start abx rest as per the team and gi
--- NOTE | 2018-02-14 18:17 | PN ---
GI Progress Note Subjective: tolerating bowel preparation, no reports of melena and rectal bleeding - Objective Vital Signs: Vital Signs Temperature 97.6 F 02/14/18 14:00 Pulse Rate 78 02/14/18 14:00 Respiratory Rate 18 02/14/18 10:00 Blood Pressure 124/79 02/14/18 14:00 O2 Sat by Pulse Oximetry (%) 96 02/13/18 21:00 Constitutional: Well Nourished Eyes: Yes: Conjunctiva Clear HENT: Yes: Atraumatic Neck: Yes: Supple Cardiovascular: Yes: Regular Rate and Rhythm Respiratory: Yes: CTA Bilaterally ...Palpate: Yes: Soft. No: Firm/Rigid, Guarding, Hepatomegaly, Mass, Pulsatile Mass, Splenomegaly, Tenderness Labs: CBC, BMP 02/14/18 05:30 02/14/18 06:00 INR, PTT INR 1.11 (0.83-1.09) H 02/12/18 12:40 Problem List - Problems (1) GIB (gastrointestinal bleeding) Assessment/Plan: R> for colonoscopy in am Dr Diaz will be performing the procedure, the family is aware if negative will need ct enterography to r/o intestinal neoplasm Code(s): K92.2 - GASTROINTESTINAL HEMORRHAGE, UNSPECIFIED Qualifiers: GI bleed type/associated pathology: unspecified gastrointestinal hemorrhage type Qualified Code(s): K92.2 - Gastrointestinal hemorrhage, unspecified (2) Anemia Code(s): D64.9 - ANEMIA, UNSPECIFIED Qualifiers: Iron deficiency anemia type: chronic blood loss
[2018-02-14] MEDS: DEXTROSE 5%-0.45% SALINE 1,000 ML IV SCH (20:00)
--- NOTE | 2018-02-14 23:33 | PN ---
Progress Note, Physician History of Present Illness: No new complaints - Current Medication List Current Medications: Active Medications Dextrose/Sodium Chloride (D5-1/2ns -) 1,000 mls @ 75 mls/hr IV ASDIR [facility] Pantoprazole Sodium (Protonix Iv) 40 mg IVPUSH DAILY [facility] Last Admin: 02/14/18 10:05 Dose: 40 mg Sodium Phosphate (Fleet Adult Rectal Enema -) 133 ml TX ONCE ONE Stop: 02/15/18 06:01 - Objective Vital Signs: Vital Signs Temperature 97.6 F 02/14/18 14:00 Pulse Rate 78 02/14/18 14:00 Respiratory Rate 18 02/14/18 20:10 Blood Pressure 124/79 02/14/18 14:00 O2 Sat by Pulse Oximetry (%) 94 L 02/14/18 20:10 Neck: Yes: WNL, Supple Cardiovascular: Yes: WNL, Regular Rate and Rhythm Respiratory: Yes: WNL, Regular, CTA Bilaterally Gastrointestinal: Yes: WNL, Normal Bowel Sounds, Soft Labs: CBC, BMP 02/14/18 05:30 02/14/18 06:00 INR, PTT INR 1.11 (0.83-1.09) H 02/12/18 12:40 Problem List - Problems (1) Syncope Assessment/Plan: W/u as been negative Code(s): R55 - SYNCOPE AND COLLAPSE (2) Symptomatic anemia Assessment/Plan: ?DUE to GI bleed Pt to have colonoscopy in am No medical contraindication Code(s): D64.9 - ANEMIA, UNSPECIFIED (3) GIB (gastrointestinal bleeding) Assessment/Plan: Monitor H/H IV protonix Upper EGD showed large hiatal hernia Pt to have colonoscopy in am Code(s): K92.2 - GASTROINTESTINAL HEMORRHAGE, UNSPECIFIED Qualifiers: GI bleed type/associated pathology: unspecified gastrointestinal hemorrhage type Qualified Code(s): K92.2 - Gastrointestinal hemorrhage, unspecified (4) ARF (acute renal failure) Assessment/Plan: Resolved Due to dehydration Cont IVF Code(s): N17.9 - ACUTE KIDNEY FAILURE, UNSPECIFIED (5) Leukocytosis Assessment/Plan: ?Due to dehydration Cultures have been negative WBC is now normal Off antibiotics Code(s): D72.829 - ELEVATED WHITE BLOOD CELL COUNT, UNSPECIFIED
[2018-02-15] MEDS ORDERED: SODIUM PHOSPHATE/NA BIPHOS 133 ML ENEMA PR ONE (06:00)
[2018-02-15] MEDS: DEXTROSE 5%-0.45% SALINE 1,000 ML IV SCH (07:30)
[2018-02-15] MEDS: PANTOPRAZOLE SODIUM 40 MG VIAL IVPUSH SCH (09:26)
--- NOTE | 2018-02-15 12:05 | PN ---
Progress Note, Physician Chief Complaint: Cardiology Coverage for Dr. Duarte History of Present Illness: No further near or true syncopal episodes, Hgb with appropriate increase post transfusion. No source of bleeding other than hemorrhoids were found on colonoscopy. - Current Medication List Current Medications: Active Medications Dextrose/Sodium Chloride (D5-1/2ns -) 1,000 mls @ 75 mls/hr IV ASDIR [facility] Last Admin: 02/15/18 07:30 Dose: 75 mls/hr Pantoprazole Sodium (Protonix Iv) 40 mg IVPUSH DAILY [facility] Last Admin: 02/15/18 09:26 Dose: 40 mg - Objective Vital Signs: Vital Signs Temperature 98.1 F 02/15/18 09:00 Pulse Rate 64 02/15/18 09:00 Respiratory Rate 20 02/15/18 09:00 Blood Pressure 125/87 02/15/18 09:00 O2 Sat by Pulse Oximetry (%) 96 02/15/18 09:00 Labs: CBC, BMP 02/14/18 05:30 02/14/18 06:00 INR, PTT INR 1.11 (0.83-1.09) H 02/12/18 12:40 Problem List - Problems (1) Cerebral palsy Code(s): G80.9 - CEREBRAL PALSY, UNSPECIFIED Qualifiers: Cerebral palsy type: unspecified type Qualified Code(s): G80.9 - Cerebral palsy, unspecified (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 (3) GIB (gastrointestinal bleeding) Code(s): K92.2 - GASTROINTESTINAL HEMORRHAGE, UNSPECIFIED Qualifiers: GI bleed type/associated pathology: unspecified gastrointestinal hemorrhage type Qualified Code(s): K92.2 - Gastrointestinal hemorrhage, unspecified (4) Leukocytosis Code(s): D72.829 - ELEVATED WHITE BLOOD CELL COUNT, UNSPECIFIED (5) Sleep disorder Code(s): G47.9 - SLEEP DISORDER, UNSPECIFIED (6) Anemia Code(s): D64.9 - ANEMIA, UNSPECIFIED Qualifiers: Iron deficiency anemia type: chronic blood loss Assessment/Plan 02/13/18 Echo: Normal LV size and fxn, mild MR - Problems (1) Friedreich ataxia Assessment/Plan: ECHO does not indicate HCM or cardiomyopathy, which are often associated with this condition. F?u with neurology. Code(s): G11.1 - EARLY-ONSET CEREBELLAR ATAXIA (2) Aortic root dilatation Assessment/Plan: ECHO: normal LVEF; mild aortic dilatation; abnormal diastolic compliance; mild MR. F/u records regarding aortic root size. Code(s): I77.810 - THORACIC AORTIC ECTASIA (3) Diastolic CHF Code(s): I50.30 - UNSPECIFIED DIASTOLIC (CONGESTIVE) HEART FAILURE (4) Cerebral palsy Code(s): G80.9 - CEREBRAL PALSY, UNSPECIFIED (5) GIB (gastrointestinal bleeding) Assessment/Plan: workup for acute anemia in progress, colonoscopy w/o bleed source. ct enterography to r/o intestinal neoplasm scheduled by Dr. Nieves Replete RBCs, fluids; pt's syncopal episode may have been related to anemia, dehydration. Code(s): K92.2 - GASTROINTESTINAL HEMORRHAGE, UNSPECIFIED (7) Syncope Assessment/Plan: Replete RBCs, fluids (BUN , at 24, is the highest noted in hospital [id number] kept since 12/2015). Orthostatic vital signs. TSH WNL. TNI < 0.02 x 2. EKG: normal study. ECHO: normal LVEF; mild aortic root dilatation; abnormal diastolic compliance; mild MR. CT head: no acute pathology; probable chronic minimal microvascular ischemic disease. Leukocytosis; r/o infectious process. F/u prior studies done to r/o CAD. F/u with neurology: Lashawn's ataxia, with muscle-wasting, autonomic dysfunction, weakness. Code(s): R55 - SYNCOPE AND COLLAPSE (8) HTN (hypertension) Code(s): I10 - ESSENTIAL (PRIMARY) HYPERTENSION (9) Sleep disorder Assessment/Plan: consider sleep studies to r/o disorder associated with Lashawn's Code(s): G47.9 - SLEEP DISORDER, UNSPECIFIED (10) Hiatal hernia Code(s): K44.9 - DIAPHRAGMATIC HERNIA WITHOUT OBSTRUCTION OR GANGRENE
--- NOTE | 2018-02-15 13:23 | PN ---
Progress Note, Physician History of Present Illness: colonoscopy done no bleeding source found patient feeling better - Current Medication List Current Medications: Active Medications Dextrose/Sodium Chloride (D5-1/2ns -) 1,000 mls @ 75 mls/hr IV ASDIR [facility] Last Admin: 02/15/18 07:30 Dose: 75 mls/hr Pantoprazole Sodium (Protonix Iv) 40 mg IVPUSH DAILY [facility] Last Admin: 02/15/18 09:26 Dose: 40 mg - Objective Vital Signs: Vital Signs Temperature 98 F 02/15/18 13:19 Pulse Rate 74 02/15/18 13:19 Respiratory Rate 18 02/15/18 13:19 Blood Pressure 89/52 L 02/15/18 13:19 O2 Sat by Pulse Oximetry (%) 95 02/15/18 13:19 Constitutional: Yes: No Distress, Calm Cardiovascular: Yes: Regular Rate and Rhythm Respiratory: Yes: Regular, CTA Bilaterally Gastrointestinal: Yes: Normal Bowel Sounds, Soft Extremities: Yes: WNL Neurological: Yes: Alert Psychiatric: Yes: Alert Labs: CBC, BMP 02/14/18 05:30 02/14/18 06:00 INR, PTT INR 1.11 (0.83-1.09) H 02/12/18 12:40 Assessment/Plan Problem List - Problems (1) Syncope Code(s): R55 - SYNCOPE AND COLLAPSE (2) Symptomatic anemia Code(s): D64.9 - ANEMIA, UNSPECIFIED (3) GIB (gastrointestinal bleeding) Code(s): K92.2 - GASTROINTESTINAL HEMORRHAGE, UNSPECIFIED (4) ARF (acute renal failure) Code(s): N17.9 - ACUTE KIDNEY FAILURE, UNSPECIFIED (5) Leukocytosis Code(s): D72.829 - ELEVATED WHITE BLOOD CELL COUNT, UNSPECIFIED plan continue to monitor nutrition patient looks stable rest as per the team
--- NOTE | 2018-02-15 13:40 | PN ---
Progress Note (short form) - Note Progress Note: GI Procedure Note ( covering Dr Nieves) : Please see scanned colonoscopy. No source of bleeding other than hemorrhoids were found. Discussed findings with Kvng's mother and him. Will order diet.
--- NOTE | 2018-02-15 16:02 | PATH ---
Surgical Pathology Report Patient Name: HEAVEN LEYVA [facility]. Rec. #: [id number] /Age/Gender: 1960 (Age: 57) / M Account: [id number] Location: [address] [place] [address] Taken: 02/13/2018 Received: 02/14/2018 Reported: 02/15/2018 Physicians: Ani Corley M.D. Specimen(s) Received BX ANTRUM Clinical History Anemia, GI bleeding Postoperative diagnosis: Gastric polyps, esophagitis, paraesophageal hiatal hernia Final Diagnosis ANTRUM, BIOPSY: GASTRIC MUCOSA WITH FOCAL DILATED GLANDS. IMMUNOSTAIN FOR H. PYLORI IS NEGATIVE. NEGATIVE FOR INTESTINAL METAPLASIA. Electronically Signed Nicolasa Richardson M.D. Gross Description Received in formalin, labeled "biopsy antrum" are 3 vu, irregular portions of soft tissue ranging from 0.2-0.5 cm. in greatest dimension. The specimens are submitted in toto in one cassette. 02/14/2018 [facility]02/14/2018
[2018-02-15] MEDS ORDERED: DEXTROSE 5%-0.45% SALINE 1,000 ML IV SCH (16:33)
--- NOTE | 2018-02-15 19:33 | PN ---
Progress Note, Physician - Current Medication List Current Medications: Active Medications Dextrose/Sodium Chloride (D5-1/2ns -) 1,000 mls @ 75 mls/hr IV ASDIR BONNIE Pantoprazole Sodium (Protonix Iv) 40 mg IVPUSH DAILY BONNIE - Objective Vital Signs: Vital Signs Temperature 97.5 F L 02/15/18 14:00 Pulse Rate 84 02/15/18 14:00 Respiratory Rate 20 02/15/18 14:00 Blood Pressure 146/90 02/15/18 14:00 O2 Sat by Pulse Oximetry (%) 100 02/15/18 13:49 Labs: CBC, BMP 02/14/18 05:30 02/14/18 06:00 INR, PTT INR 1.11 (0.83-1.09) H 02/12/18 12:40 Problem List - Problems (1) Syncope Code(s): R55 - SYNCOPE AND COLLAPSE (2) Symptomatic anemia Code(s): D64.9 - ANEMIA, UNSPECIFIED (3) GIB (gastrointestinal bleeding) Code(s): K92.2 - GASTROINTESTINAL HEMORRHAGE, UNSPECIFIED Qualifiers: GI bleed type/associated pathology: unspecified gastrointestinal hemorrhage type Qualified Code(s): K92.2 - Gastrointestinal hemorrhage, unspecified (4) ARF (acute renal failure) Code(s): N17.9 - ACUTE KIDNEY FAILURE, UNSPECIFIED (5) Leukocytosis Code(s): D72.829 - ELEVATED WHITE BLOOD CELL COUNT, UNSPECIFIED
[2018-02-16 06:32] VITALS: BP 134/83; PULSE 86; TEMP 98.4
[2018-02-16] MEDS ORDERED: PANTOPRAZOLE SODIUM 40 MG VIAL IVPUSH SCH (10:00)
== END 2018-02-16 14:55 | disposition home or self-care (01) | DRG 394 ==
LOC: JER 12:15 → JERBED 16:06 → J4W 18:16 → J6S 02-15 15:19
PROVIDERS: ADMIT Internal Medicine; ATTEND Internal Medicine
PROC: 30233N1 Transfusion of Nonautologous Red Blood Cells into Peripheral Vein, Percutaneous Approach (ICD-10-PCS; 2018-02-12)
PROC: 0DJD8ZZ Inspection of Lower Intestinal Tract, Via Natural or Artificial Opening Endoscopic (ICD-10-PCS; 2018-02-15)
PROC: 0DB68ZX Excision of Stomach, Via Natural or Artificial Opening Endoscopic, Diagnostic (ICD-10-PCS; principal; 2018-02-15 11:45)
DX: K64.9 Unspecified hemorrhoids (principal); G11.1 Early-onset cerebellar ataxia; K92.2 Gastrointestinal hemorrhage, unspecified; N17.9 Acute kidney failure, unspecified; E87.3 Alkalosis; R55 Syncope and collapse; G80.9 Cerebral palsy, unspecified; I10 Essential (primary) hypertension; D64.9 Anemia, unspecified; D47.3 Essential (hemorrhagic) thrombocythemia; D72.829 Elevated white blood cell count, unspecified; I77.810 Thoracic aortic ectasia; G47.9 Sleep disorder, unspecified; K44.9 Diaphragmatic hernia without obstruction or gangrene; Z87.11 Personal history of peptic ulcer disease; K63.5 Polyp of colon
CPT/HCPCS: 36415; 36430; 36511; 70450-TC; 71045-TC-FY; 80053; 80061; 81003; 82272; 82550; 82803; 83605; 83721; 83735; 84443; 84484; 85025; 85610; 85730; 86850; 86900; 86901; 86922; 87040; 87086; 87186; 88305-TC; 93005; 93010; 93306-TC; 93880-TC; 97161-GP; 99285-25; P9038; P9058

== ENCOUNTER 2018-10-25 11:49 | Inpatient (IN) | payer OTHER | END 2018-10-28 14:31 | disposition home or self-care (01) | LOC: JER 11:49 → JERBED 14:15 → J8W 18:28 ==

== ENCOUNTER 2020-07-24 21:14 | Inpatient (IN) | payer OTHER ==
[2020-07-24 21:59] LABS: BASO % 0.9 % (0-2.0); EOS % 1.5 % (0-4.5); HEMATOCRIT 39.5 % (35.4-49); HEMOGLOBIN 13.2 GM/dL (11.7-16.9); LYMPH % 17.7 % (8-40); MCH 28.7 pg (25.7-33.7); MCHC 33.5 g/dl (32.0-35.9); MEAN CELL VOLUME 85.6 fl (80-96); MEAN PLT VOLUME 7.7 fl (7.5-11.1); NEUT % 66.9 % (42.8-82.8); PLATELET COUNT 434 K/MM3 (134-434); RBC 4.62 M/mm3 (4.00-5.60); RDW 14.9 % (11.9-15.9); WHITE BLOOD COUNT 12.6 K/mm3 (4.0-10.0)
[2020-07-24 22:18] LABS: BLOOD UREA NITROGEN 14.7 mg/dL (7-18)
[2020-07-24 22:22] LABS: CREATININE 0.7 mg/dL (0.55-1.3)
[2020-07-24 22:23] LABS: BILIRUBIN,TOTAL 0.4 mg/dL (0.2-1); TOT PROT 6.2 g/dl (6.4-8.2)
[2020-07-25 02:08] LABS: URINE APPEARANCE CLOUDY; URINE BILIRUBIN NEGATIVE (NEGATIVE); URINE COLOR YELLOW; URINE GLUCOSE (UA) NEGATIVE (NEGATIVE); URINE KETONE NEGATIVE (NEGATIVE); URINE LEUK ESTERASE NEGATIVE (NEGATIVE); URINE NITRITE NEGATIVE (NEGATIVE); URINE PROTEIN TRACE (NEGATIVE); URINE UROBILINOGEN 0.2 mg/dL (0.2-1.0)
[2020-07-25 04:35] VITALS: BMI 26.2
[2020-07-25] MEDS ORDERED: BISACODYL 5 MG TABLET.DR (FP) PO PRN (06:05)
[2020-07-25] MEDS: DEXTROSE 5%-0.45% SALINE 1,000 ML IV SCH ×2 (06:32→20:33)
[2020-07-25] MEDS: FERROUS SO4 325 MG TABLET (FP) PO SCH ×3 (08:27→16:58)
[2020-07-25 08:49] LABS: BASO % 0.6 % (0-2.0); EOS % 2.2 % (0-4.5); HEMATOCRIT 39.4 % (35.4-49); LYMPH % 18.6 % (8-40); MCH 28.8 pg (25.7-33.7); MCHC 33.1 g/dl (32.0-35.9); MEAN CELL VOLUME 86.9 fl (80-96); MEAN PLT VOLUME 7.8 fl (7.5-11.1); MONO % 12.5 % (3.8-10.2); NEUT % 66.1 % (42.8-82.8); PLATELET COUNT 420 K/MM3 (134-434); RBC 4.53 M/mm3 (4.00-5.60); RDW 15.1 % (11.9-15.9); WHITE BLOOD COUNT 13.5 K/mm3 (4.0-10.0)
[2020-07-25 09:07] LABS: CALCIUM 8.8 mg/dL (8.5-10.1)
[2020-07-25 09:08] LABS: ALBUMIN 3.1 g/dl (3.4-5.0); BLOOD UREA NITROGEN 12.3 mg/dL (7-18)
[2020-07-25 09:11] LABS: CREATININE 0.9 mg/dL (0.55-1.3)
[2020-07-25 09:12] LABS: BILIRUBIN,TOTAL 0.6 mg/dL (0.2-1); TOT PROT 6.3 g/dl (6.4-8.2)
[2020-07-25] MEDS ORDERED: SODIUM PHOSPHATE/NA BIPHOS 133 ML ENEMA RC ONE (09:30)
[2020-07-25] MEDS: FOLIC ACID 1 MG TABLET (FP) PO SCH (09:53)
[2020-07-25] MEDS: ENOXAPARIN NA (PORCINE) 40 MG/0.4 ML DISP.SYRIN SQ SCH (09:53)
[2020-07-25] MEDS: ASCORBIC ACID 500 MG TABLET (FP) PO SCH (09:53)
[2020-07-25] MEDS: MAGNESIUM CITRATE 300 ML BOTTLE PO SCH ×2 (09:53→22:10)
[2020-07-25] MEDS: PANTOPRAZOLE 40 MG TABLET PO SCH (09:53)
[2020-07-25] MEDS ORDERED: PATIENT'S OWN MEDICATION (NON-FORMULARY) (Ubidecarenone [Co Q-10] 100 MG Capsule) PO SCH (10:00)
[2020-07-25] MEDS ORDERED: POLYETHYLENE GLYCOL 3350 119 GM BTL PO SCH (10:00)
[2020-07-25] MEDS: SODIUM PHOSPHATE/NA BIPHOS 133 ML ENEMA RC SCH ×3 (13:00→23:04)
[2020-07-25] MEDS ORDERED: DOCUSATE SODIUM 100 MG CAPSULE (FP) PO SCH (22:00)
[2020-07-26 07:58] LABS: ALBUMIN 2.8 g/dl (3.4-5.0); BLOOD UREA NITROGEN 6.8 mg/dL (7-18)
[2020-07-26 07:59] LABS: CALCIUM 8.2 mg/dL (8.5-10.1)
[2020-07-26 08:01] LABS: CREATININE 0.8 mg/dL (0.55-1.3)
[2020-07-26 08:02] LABS: BILIRUBIN,TOTAL 0.4 mg/dL (0.2-1); TOT PROT 5.5 g/dl (6.4-8.2)
[2020-07-26 08:17] LABS: BASO % 0.5 % (0-2.0); EOS % 1.4 % (0-4.5); HEMATOCRIT 36.6 % (35.4-49); HEMOGLOBIN 12.1 GM/dL (11.7-16.9); LYMPH % 16.7 % (8-40); MCH 28.4 pg (25.7-33.7); MEAN CELL VOLUME 86.1 fl (80-96); MEAN PLT VOLUME 7.9 fl (7.5-11.1); MONO % 10.2 % (3.8-10.2); NEUT % 71.2 % (42.8-82.8); PLATELET COUNT 423 K/MM3 (134-434); RBC 4.25 M/mm3 (4.00-5.60); RDW 14.9 % (11.9-15.9); WHITE BLOOD COUNT 14.5 K/mm3 (4.0-10.0)
[2020-07-26] MEDS: FERROUS SO4 325 MG TABLET (FP) PO SCH ×3 (08:44→18:17)
[2020-07-26] MEDS ORDERED: PT OWN MED DRAWER 7, Y5N ONE (10:47)
[2020-07-26] MEDS: FOLIC ACID 1 MG TABLET (FP) PO SCH (10:51)
[2020-07-26] MEDS: PANTOPRAZOLE 40 MG TABLET PO SCH (10:51)
[2020-07-26] MEDS: DEXTROSE 5%-0.45% SALINE 1,000 ML IV SCH (10:52)
[2020-07-26] MEDS: ASCORBIC ACID 500 MG TABLET (FP) PO SCH (10:52)
[2020-07-26] MEDS: ENOXAPARIN NA (PORCINE) 40 MG/0.4 ML DISP.SYRIN SQ SCH (10:52)
[2020-07-26] MEDS: POLYETHYLENE GLYCOL 3350 119 GM BTL PO SCH ×2 (14:27→21:32)
[2020-07-27] MEDS: DEXTROSE 5%-0.45% SALINE 1,000 ML IV SCH (02:27)
[2020-07-27] MEDS: POLYETHYLENE GLYCOL 3350 119 GM BTL PO SCH ×3 (05:20→21:45)
[2020-07-27 07:55] LABS: BASO % 0.7 % (0-2.0); EOS % 3.3 % (0-4.5); HEMATOCRIT 35.3 % (35.4-49); LYMPH % 27.5 % (8-40); MCH 29.1 pg (25.7-33.7); MCHC 33.9 g/dl (32.0-35.9); MEAN PLT VOLUME 7.6 fl (7.5-11.1); MONO % 13.9 % (3.8-10.2); NEUT % 54.6 % (42.8-82.8); PLATELET COUNT 408 10^3/uL (134-434); RBC 4.11 M/mm3 (4.00-5.60); WHITE BLOOD COUNT 8.6 K/mm3 (4.0-10.0)
[2020-07-27 08:04] LABS: CALCIUM 8.1 mg/dL (8.5-10.1)
[2020-07-27 08:05] LABS: ALBUMIN 2.6 g/dl (3.4-5.0); BLOOD UREA NITROGEN 6.6 mg/dL (7-18)
[2020-07-27 08:08] LABS: CREATININE 0.9 mg/dL (0.55-1.3)
[2020-07-27 08:09] LABS: BILIRUBIN,TOTAL 0.7 mg/dL (0.2-1); TOT PROT 5.3 g/dl (6.4-8.2)
[2020-07-27] MEDS: FERROUS SO4 325 MG TABLET (FP) PO SCH ×3 (08:53→17:44)
[2020-07-27] MEDS: FOLIC ACID 1 MG TABLET (FP) PO SCH (09:33)
[2020-07-27] MEDS: ENOXAPARIN NA (PORCINE) 40 MG/0.4 ML DISP.SYRIN SQ SCH (09:33)
[2020-07-27] MEDS: PANTOPRAZOLE 40 MG TABLET PO SCH (09:33)
[2020-07-27] MEDS: ASCORBIC ACID 500 MG TABLET (FP) PO SCH (09:33)
[2020-07-28] MEDS: POLYETHYLENE GLYCOL 3350 119 GM BTL PO SCH ×2 (06:10→13:00)
[2020-07-28] MEDS: ASCORBIC ACID 500 MG TABLET (FP) PO SCH (09:48)
[2020-07-28] MEDS: FERROUS SO4 325 MG TABLET (FP) PO SCH ×2 (09:48→13:00)
[2020-07-28] MEDS: PANTOPRAZOLE 40 MG TABLET PO SCH (09:48)
[2020-07-28] MEDS: ENOXAPARIN NA (PORCINE) 40 MG/0.4 ML DISP.SYRIN SQ SCH (09:48)
[2020-07-28] MEDS: FOLIC ACID 1 MG TABLET (FP) PO SCH (09:48)
[2020-07-28 15:57] VITALS: BP 134/72; PULSE 79; TEMP 98
== END 2020-07-28 16:45 | disposition home or self-care (01) | DRG 389 ==
LOC: JER 21:14 → JERBED 07-25 02:34 → J8W 07-25 03:50
PROVIDERS: ADMIT Internal Medicine; ATTEND Internal Medicine
DX: K56.41 Fecal impaction (principal); G11.11 Friedreich ataxia; D50.9 Iron deficiency anemia, unspecified; G80.9 Cerebral palsy, unspecified; I10 Essential (primary) hypertension; K44.9 Diaphragmatic hernia without obstruction or gangrene; K21.9 Gastro-esophageal reflux disease without esophagitis; E86.0 Dehydration; Z87.11 Personal history of peptic ulcer disease
CPT/HCPCS: 36415; 70450-TC; 71045-TC-FY; 74177-TC; 80053; 81003; 82272; 82962; 85025; 86850; 86900; 86901; 87086; 93005; 93010; 97161-GP; 99285-25; C9803; U0003; U0005